=== PATIENT | male | born 1985 | race Two or more races ===

== ENCOUNTER 2017-12-21 11:35 | Emergency (ER) | payer MEDICAID ==
[~2017-12-21] VITALS: Ht 177.8 cm; Wt 108.9 kg
[~2017-12-21 11:35] MED LIST: PEPCID20 MG ORAL; TYLENOL325 MG ORAL
[2017-12-21] MEDS ORDERED: ROBAXIN-750750 MG PO (12:20)
[2017-12-21] MEDS ORDERED: IBUPROFEN600 MG ORAL (12:20)
--- NOTE | 2017-12-21 12:25 | Emergency Room Report ---
History of Present Illness General Chief Complaint: Chest Pain Source: Patient Present Illness HPI 32-year-old male with no sig pmhx, p/w chest pain for one month. Localized to substernal area, no radiation to back or other areas, sharp in nature, gradual in onset, multiple. Worse with palpation. Not worse on exertion. States that he has had this chest pain multiple times in the past Also states that he has some bilateral neck pain, denies any trauma. No blurry vision, headache, weakness of arms or legs. Denies fever, chills, cough, abd pain, recent viral illness. Denies trauma. Denies cardiac history, smoking, or family history of cardiac disease at a young age. Denies history of PE/DVT, no recent surgeries, prolonged immobilzation, malignancy Allergies: Coded Allergies: No Known Allergies (Unverified , 08/17/16) Patient History Past Medical History: see triage record Past Surgical History: none Pertinent Family History: none Reviewed Nursing Documentation: PMH: Agreed, PSxH: Agreed Nursing Documentation-PMH Past Medical History: No History, Except For Hx Cardiac Problems: Yes - high cholesterol Review of Systems All Other Systems: negative except mentioned in HPI Physical Exam Vital Signs Date Time Temp Pulse Resp B/P (MAP) Pulse Ox O2 Delivery O2 Flow Rate FiO2 12/21/17 11:38 98.2 95 18 129/85 96 Room Air 98.2 Sp02 EP Interpretation: reviewed, normal General Appearance: normal inspection, well appearing, no apparent distress, alert, GCS 15, non-toxic Head: normocephalic, atraumatic Eyes: bilateral eye normal inspection, bilateral eye PERRL, bilateral eye EOMI ENT: normal ENT inspection, normal pharynx, normal voice, moist mucus membranes Neck: normal inspection, full range of motion, supple Respiratory: normal inspection, lungs clear, normal breath sounds, no respiratory distress, no retraction, no wheezing, speaking full sentences, chest symmetrical Cardiovascular #1: regular rate, rhythm, no edema, normal capillary refill, other - +chest wall tenderness Cardiovascular #2: 2+ radial (R), 2+ radial (L) Gastrointestinal: normal inspection, non tender, soft, non-distended, no guarding Genitourinary: no CVA tenderness Musculoskeletal: normal inspection, back normal, normal range of motion, non- tender Neurologic: normal inspection, alert, oriented x3, responsive, motor strength/ tone normal, sensory intact, normal gait, speech normal Psychiatric: normal inspection, judgement/insight normal, memory normal Skin: normal inspection, normal color, no rash, warm/dry, well hydrated, normal turgor Medical Decision Making Diagnostic Impression: Primary Impression: Neck muscle strain Additional Impression: Chest pain ER Course 32-year-old male with no sig pmhx p/w chest pain and muscular neck spasms Patient appears well at bedside DDX: Musculoskeletal CP/costochondritis vs. pneumothorax vs. gastritis/GERD Muscular neck spasms Plan: EKG, CXR Anticipate DC home as patient appears clinically well. ER course: Patient was treated NSAIDs with improvement of pain. Patient remains well appearing in ED. Disposition: Patient will be discharged to home with a prescription of motrin. Strict precautions discussed with patient on when to emergently return to the ED : this includes worsening/severe chest pain, palpitations, shortness of breath, syncopal episodes, fever or chills, which may indicate severe illness. Patient verbalized understanding. Patient instructed to follow up with their PMD within the next 2 days. Patient agrees with plan. Please note that this Emergency Department Report was dictated using [employer] worker technology software, occasionally this can lead to erroneous entry secondary to interpretation by the dictation equipment. EKG Diagnostic Results EP Interpretation: Yes Rate: normal Rhythm: NSR ST Segments: No acute changes ASA given to patient: no Rhythm Strip EP Interpretation: Yes Rate: 70 Rhythm: NSR, no PVCs, no ectopy Chest X-ray CXR: Ordered: Yes 1 view Indication: Chest pain EP interpretation: Yes Interpretation: No consolidation, no effusion, no PTX, no acute cardiopulmonary disease Impression: No acute disease Electronically signed by Chata Olmos MD Last Vital Signs Date Time Temp Pulse Resp B/P (MAP) Pulse Ox O2 Delivery O2 Flow Rate FiO2 12/21/17 11:38 98.2 95 18 129/85 96 Room Air 98.2 Disposition: HOME, SELF-CARE Condition: Improved Scripts Ibuprofen* (MOTRIN*) 600 Mg Tablet 600 MG ORAL Q8H Y for For Pain, #30 TAB 0 Refills Prov: Chata Olmos M.D. 12/21/17 Methocarbamol* (ROBAXIN-750*) 750 Mg Tablet 750 MG PO QID, #28 TAB 0 Refills Prov: Chata Olmos M.D. 12/21/17 Patient Instructions: Muscle Strain, [id number], Nonspecific Chest Pain Chata Olmos M.D. Dec 21, 2017 12:24
[2017-12-21 12:34] VITALS: BP 116/89
--- NOTE | 2017-12-21 12:44 | Diagnostic Imaging Report ---
Indication: Chest pain Technique: One view of the chest Comparison: 08/17/2016 Findings: Lungs and pleural spaces are clear. Heart size is normal . Findings are unchanged Impression: No acute process
== END 2017-12-21 12:34 | disposition home or self-care (01) ==
LOC: EMR 12:20
DX: R07.89 Other chest pain (principal); S16.1XXA Strain of muscle, fascia and tendon at neck level, initial encounter; X58.XXXA Exposure to other specified factors, initial encounter; Y92.9 Unspecified place or not applicable
CPT/HCPCS: 71045; 99284

== ENCOUNTER 2018-02-11 15:41 | Emergency (ER) | payer MEDICAID ==
[~2018-02-11] VITALS: Ht 172.7 cm; Wt 108.9 kg
[~2018-02-11 15:41] MED LIST changes: +IBUPROFEN600 MG ORAL; +ROBAXIN-750750 MG PO
[2018-02-11] MEDS ORDERED: oxyCODONE HCL/Acetaminophen 5/325mg ORAL ONE (16:15)
--- NOTE | 2018-02-11 16:31 | Emergency Room Report ---
History of Present Illness General Chief Complaint: Lower Extremity Injury Source: Patient Present Illness HPI 32-year-old male presents ED complaining of knee pain. States he twisted his knee while working today. Denies any other injuries. Pain is throbbing, 10 out of 10, nonradiating. Notes pain but is able to bear weight. No other aggravating relieving factors. Denies any other associated symptoms Allergies: Coded Allergies: No Known Allergies (Unverified , 08/17/16) Patient History Past Medical History: none Past Surgical History: none Pertinent Family History: none Social History: Denies: smoking, alcohol use, drug use Immunizations: UTD Reviewed Nursing Documentation: PMH: Agreed; PSxH: Agreed Nursing Documentation-PMH Past Medical History: No Stated History Hx Cardiac Problems: Yes - high cholesterol Review of Systems All Other Systems: negative except mentioned in HPI Physical Exam Vital Signs Date Time Temp Pulse Resp B/P (MAP) Pulse Ox O2 Delivery O2 Flow Rate FiO2 02/11/18 15:52 98.2 80 16 127/69 95 Room Air 98.2 Sp02 EP Interpretation: reviewed, normal General Appearance: no apparent distress, alert, GCS 15, non-toxic Head: normocephalic Eyes: bilateral eye normal inspection, bilateral eye PERRL ENT: normal ENT inspection Neck: normal inspection Respiratory: normal inspection Cardiovascular #1: normal inspection Gastrointestinal: normal inspection Rectal: deferred Genitourinary: no CVA tenderness Musculoskeletal: tender - R knee Neurologic: alert, oriented x3, responsive, motor strength/tone normal, sensory intact, speech normal Psychiatric: judgement/insight normal, memory normal, mood/affect normal, no suicidal/homicidal ideation Skin: normal inspection Lymphatic: normal inspection Procedures Splinting Splinting : Consent: Verbal Pre-Made Type: CHARLI wrap Pre-Proc Neuro Vasc Exam: normal Post-Proc Neuro Vasc Exam: normal Patient Tolerated: Well Complications: None Medical Decision Making Diagnostic Impression: Primary Impression: Knee strain Qualified Codes: S86.911A - Strain of unspecified muscle(s) and tendon(s) at lower leg level, right leg, initial encounter ER Course Hospital Course 32-year-old M presents to ED complaining of R knee pain s/p twisting injury Differential diagnoses include: Fracture, dislocation, sprain, contusion Clinical course Patient placed on stretcher. After initial history and physical, I ordered pain medications and Xrays of R knee Xrays prelim read shows no acute fracture/dislocation. placed in charli wrap, given crutches Diagnosis - knee sprain Stable and discharged to home with prescription for Motrin. apply ice, keep elevated. weight bear as tolerated. Followup with PMD. Return to ED if symptoms recur or worsen Other X-Ray Diagnostic Results Other X-Ray Diagnostic Results : X-Ray ordered: R knee # of Views/Limited Vs Complete: 3 View Indication: Pain EP Interpretation: Yes Interpretation: no dislocation, no soft tissue swelling, no fractures Impression: No acute disease Electronically Signed by: Electronically signed by Terrance Blanco MD Last Vital Signs Date Time Temp Pulse Resp B/P (MAP) Pulse Ox O2 Delivery O2 Flow Rate FiO2 02/11/18 15:52 98.2 80 16 127/69 95 Room Air 98.2 Status: improved Disposition: HOME, SELF-CARE Condition: Stable Scripts Ibuprofen* (MOTRIN*) 600 Mg Tablet 600 MG ORAL Q8H PRN for For Pain, #30 TAB 0 Refills Prov: Terrance Blanco MD 02/11/18 Terrance Blanco MD February 11, 2018 16:31
[2018-02-11] MEDS ORDERED: IBUPROFEN600 MG ORAL (17:05)
--- NOTE | 2018-02-11 17:23 | Diagnostic Imaging Report ---
EXAM: XR Right Knee, 3 views CLINICAL HISTORY: PAIN TECHNIQUE: Three views of the right knee. COMPARISON: No relevant prior studies available. FINDINGS: Bones/joints: No acute displaced fracture or dislocation. Possible knee joint effusion. Soft tissues: Unremarkable. IMPRESSION: 1. No acute displaced fracture or dislocation. 2. Possible knee joint effusion.
[2018-02-11 17:25] VITALS: BP 127/69
== END 2018-02-11 17:25 | disposition home or self-care (01) ==
LOC: EMR 16:33
DX: S86.811A Strain of other muscle(s) and tendon(s) at lower leg level, right leg, initial encounter (principal); X50.1XXA Overexertion from prolonged static or awkward postures, initial encounter; Y92.9 Unspecified place or not applicable
CPT/HCPCS: 99283

== ENCOUNTER 2019-11-01 08:22 | Emergency (ER) | payer MEDICAID ==
[~2019-11-01] VITALS: Ht 172.7 cm; Wt 90.7 kg
[2019-11-01 08:25] VITALS: BP 131/93
--- NOTE | 2019-11-01 08:35 | NUR ---
ED Nurse Note: PT CAME IN DUE TO ESCALATING LEFT SIDE CP THAT RADIATES TO HIS LEFT AXILLA AND STATES THAT HE FEELS PALPITATIONS X 15 DAYS. DENIES N/V OR DIZZINESS. ABLE TO SPEAK IN CLEAR SENTENCES. AAO X4 AND AMBULATES WITH STEADY GAIT. NO RESPIRATORY DISTRESS. ERMD AWARE.
--- NOTE | 2019-11-01 08:43 | Emergency Room Report ---
History of Present Illness General Chief Complaint: cp Source: Patient Present Illness HPI Patient presents with complaints of left upper chest pain ongoing for the past 5 days feels a sharp pain in that area with radiation to the left upper back area Denies any change with position denies any pleurisy denies any fevers or chills denies any cough Denies any vomiting or diarrhea denies any medications Denies any recent travel Patient also reports that he feels a numbness sensation into the left hand usually when he wakes up Denies any weakness Allergies: Coded Allergies: No Known Allergies (Unverified , 08/17/16) Patient History Past Medical History: see triage record Reviewed Nursing Documentation: PMH: Agreed; PSxH: Agreed Nursing Documentation-PMH Hx Cardiac Problems: Yes - high cholesterol Review of Systems All Other Systems: negative except mentioned in HPI Physical Exam 88% room air which is normal Sp02 EP Interpretation: reviewed, normal General Appearance: well appearing, no apparent distress Head: normocephalic, atraumatic Eyes: bilateral eye PERRL, bilateral eye EOMI ENT: hearing grossly normal, normal pharynx, TMs + canals normal, uvula midline Neck: full range of motion, supple, no meningismus, no bony tend Respiratory: lungs clear, normal breath sounds, no rhonchi, no respiratory distress, no retraction, no accessory muscle use Cardiovascular #1: normal peripheral pulses, regular rate, rhythm, no edema, no gallop, no JVD, no murmur Gastrointestinal: normal bowel sounds, non tender, soft, no mass, no organomegaly, non-distended, no guarding, no hernia, no pulsatile mass, no rebound Genitourinary: no CVA tenderness Musculoskeletal: normal inspection Neurologic: motor strength/tone normal, 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, oriented x3 , sensory intact, responsive Psychiatric: mood/affect normal Skin: no rash Lymphatic: normal inspection, no adenopathy Medical Decision Making Diagnostic Impression: Primary Impression: Chest pain ER Course Patient is a fairly complex patient with multiple differential to consideration including but not limited to cardiac cardiopulmonary and vascular emergencies Patient's EKG and x-ray are normal patient's presentation does not appear to be necessarily cardiac related Patient will have initial conservative outpatient trial EKG Diagnostic Results Rate: normal Rhythm: NSR ST Segments: no acute changes Rhythm Strip Diag. Results EP Interpretation: yes Rate: 66 Rhythm: NSR, no PVC's, no ectopy Chest X-Ray Diagnostic Results Chest X-Ray Diagnostic Results : Chest X-Ray Ordered: Yes # of Views/Limited/Complete: 1 View Indication: Chest Pain EP Interpretation: Yes Interpretation: no consolidation, no effusion, no pneumothorax Impression: No acute disease Electronically Signed by: Venkata Thurston DO Status: improved Disposition: HOME, SELF-CARE Condition: Improved Scripts Ibuprofen* (MOTRIN*) 600 Mg Tablet 600 MG ORAL Q8H PRN for For Pain, #20 TAB 0 Refills Prov: Venkata Thurston DO 11/01/19 Additional Instructions: Patient is provided with the discharge instructions notified to follow up with primary doctor in the next 2-3 days otherwise return to the er with any worsening symptoms. Please note that this report is being documented using [employer] technology. This can lead to erroneous entry secondary to incorrect interpretation by the dictating instrument. Venkata Thurston DO Nov 01, 2019 08:43
[2019-11-01] MEDS ORDERED: IBUPROFEN600 MG ORAL (09:27)
[2019-11-01 09:38] VITALS: BP 128/89
--- NOTE | 2019-11-01 09:38 | NUR ---
ER DISCHARGE NOTE: Patient is cleared to be discharged per ERMD, pt is aox4, on room air, with stable vital signs. pt was given dc and prescription instructions, pt was able to verbalize understanding, pt id band removed. pt is able to ambulate with steady gait. pt took all belongings.
--- NOTE | 2019-11-01 09:53 | Diagnostic Imaging Report ---
Indication: Cough Technique: One view of the chest Comparison: 12/21/2017 Findings: Body habitus limits evaluation. Lungs and pleural spaces are clear. The heart size is normal. There no significant interim change Impression: No acute process
== END 2019-11-01 09:38 | disposition home or self-care (01) ==
LOC: EMR 09:00
DX: R07.9 Chest pain, unspecified (principal); E78.00 Pure hypercholesterolemia, unspecified
CPT/HCPCS: 71045; 93005; Z7502; 99283